=== PATIENT | female | born 1975 | race African-American/Black ===

== ENCOUNTER 2023-02-21 13:16 | Inpatient (IN) | payer MEDICAID ==
[~2023-02-21] VITALS: Ht 157.5 cm; Wt 97.1 kg
[2023-02-21] MEDS ORDERED: DIPHENHYDRAMINE 50MG/ML VIAL IM STA (13:28)
[2023-02-21] MEDS ORDERED: LORAZEPAM 2MG/ML CPJ IM STA (13:28)
[2023-02-21] MEDS ORDERED: HALOPERIDOL LACTATE 5MG/ML VIAL IM ONE (13:30)
[2023-02-21 14:07] LABS: BASOPHILS % 0.4 % (0.0-2.0); EOSINOPHILS % 1.3 % (0.0-5.0); HEMATOCRIT. 36.4 % (36.0-48.0); HEMOGLOBIN. 12.3 g/dL (12.0-16.0); MEAN CORPUSCULAR HGB CONC 33.7 g/dL (31.0-37.0); MEAN CORPUSCULAR VOLUME 95.2 fL (81.0-99.0); MEAN PLATELET VOLUME 7.9 fl (7.4-10.4); MONOCYTES % 14.4 % (2.0-8.0); NEUTROPHILS % 39.9 % (40.0-76.0); PLATELET 151 x1000/uL (130-400); RED BLOOD CELL COUNT 3.82 mill/uL (4.2-5.4); WHITE BLOOD COUNT 4.4 x1000/uL (4.5-11.0)
[2023-02-21 14:10] LABS: CHLORIDE 105 mEq/L (98-107); INDEX HEMOLYSI 4 (1-3); INDEX ICTERIC 1 (1-4); INDEX LIPEMIC 1 (1-3); SODIUM 136 mEq/L (136-145)
[2023-02-21 14:13] LABS: PARTIAL THROMBOPLASTIN TIME 30.2 sec (23.4-31.0); PROTHROMBIN TIME 11.1 sec (9.6-11.0)
[2023-02-21 14:28] LABS: ACETAMINOPHEN <2 ug/mL ug/mL (10-30); ALANINE AMINOTRANSFERASE 35 IU/L (13-61); ALBUMIN 3.4 g/dL (3.4-5.0); ASPARTATE AMINOTRANSFERASE 35 IU/L (15-37); BILIRUBIN TOTAL 0.4 mg/dL (0.1-1.0); CALCIUM 9.7 mg/dL (8.5-10.1); CARBON DIOXIDE 24 mEq/L (21-32); CREATININE 0.5 mg/dL (0.6-1.3); ETHANOL BLOOD < 10 mg/dL (-10); GLUCOSE 101 mg/dL (70-105); PROTEIN TOTAL 8.5 g/dL (6.0-8.3); UREA NITROGEN BLOOD 14 mg/dL (7-21)
[2023-02-21 14:31] LABS: POTASSIUM 3.8 mEq/L (3.5-5.1)
[2023-02-21 14:35] LABS: HCG SCREEN NEGATIVE
[2023-02-21] MEDS ORDERED: SODIUM CHLORIDE 0.9% 1,000 ML IV ONE (14:45)
[2023-02-21 15:36] LABS: INDEX HEMOLYSI 1 (1-3)
[2023-02-21 15:38] LABS: AMMONIA 21 uMol/L (<32)
[2023-02-21 15:43] LABS: TROPONIN I HIGH SENSITIVITY 6 ng/L (<54)
[2023-02-21] MEDS: HALOPERIDOL LACTATE 5MG/ML VIAL IM PRN (18:23)
[2023-02-21] MEDS ORDERED: CLONIDINE 0.1MG TABLET PO PRN (19:00)
[2023-02-21] MEDS ORDERED: ENOXAPARIN 40MG/0.4ML SYR SUBCUT SCH (19:00)
[2023-02-21] MEDS ORDERED: ONDANSETRON HCL 4MG/2ML INJ IV PRN (19:00)
[2023-02-21] MEDS ORDERED: ACETAMINOPHEN 325MG TABLET PO PRN (19:00)
[2023-02-21] MEDS ORDERED: DEXTROSE 50% WATER 50ML SYRINGE IV PRN (23:15)
[2023-02-22 01:00] VITALS: BP 142/88; PULSE 78; RESP 18; TEMP 97.5
[2023-02-22] MEDS: LORAZEPAM 2MG/ML CPJ IV PRN ×3 (01:39→18:07)
[2023-02-22] MEDS: HALOPERIDOL LACTATE 5MG/ML VIAL IM PRN (01:45)
[2023-02-22 02:45] LABS: CREATINE KINASE MB FRACTION 2.9 ng/mL (0.5-3.6)
[2023-02-22 07:19] LABS: HEMATOCRIT. 39.8 % (36.0-48.0); HEMOGLOBIN. 13.4 g/dL (12.0-16.0); MEAN CORPUSCULAR HEMOGLOBIN 32.2 pg (28.0-32.0); MEAN CORPUSCULAR HGB CONC 33.7 g/dL (31.0-37.0); MEAN CORPUSCULAR VOLUME 95.6 fL (81.0-99.0); MEAN PLATELET VOLUME 7.5 fl (7.4-10.4); PLATELET 153 x1000/uL (130-400); RED BLOOD CELL COUNT 4.16 mill/uL (4.2-5.4); RED CELL DISTRIBUTION WIDTH 16.2 % (11.6-14.6); WHITE BLOOD COUNT 2.9 x1000/uL (4.5-11.0)
[2023-02-22 07:42] LABS: CHLORIDE 104 mEq/L (98-107); INDEX HEMOLYSI 1 (1-3); INDEX ICTERIC 1 (1-4); INDEX LIPEMIC 1 (1-3); SODIUM 135 mEq/L (136-145)
[2023-02-22 07:51] LABS: CALCIUM 9.8 mg/dL (8.5-10.1); CARBON DIOXIDE 26 mEq/L (21-32); CREATINE KINASE 209 IU/L (26-192); CREATINE KINASE MB FRACTION 3.5 ng/mL (0.5-3.6); CREATININE 0.4 mg/dL (0.6-1.3); GLUCOSE 117 mg/dL (70-105); TROPONIN I HIGH SENSITIVITY 4 ng/L (<54); UREA NITROGEN BLOOD 11 mg/dL (7-21)
[2023-02-22 07:55] LABS: DIFFERENTIAL COMMENT 1
[2023-02-22 08:00] VITALS: BP 136/96; PULSE 84; TEMP 97
[2023-02-22] MEDS: INSULIN LISPRO 100 UNITS/ML SUBCUT SCH ×4 (08:08→21:00)
[2023-02-22] MEDS ORDERED: HALO20TA6 PO (10:55)
[2023-02-22] MEDS ORDERED: TOPUD MT (10:55)
[2023-02-22] MEDS ORDERED: KEPP500 PO (10:55)
[2023-02-22] MEDS ORDERED: CHOL400D2 PO (10:55)
[2023-02-22] MEDS ORDERED: FAMO40TA7 PO (10:55)
[2023-02-22] MEDS ORDERED: DIVA500T51 PO (10:55)
[2023-02-22] MEDS ORDERED: AMLO10TA4 PO (10:55)
[2023-02-22] MEDS ORDERED: SITA100T11 PO ×2 (10:55→19:07)
[2023-02-22] MEDS ORDERED: APIX2.5T PO (10:55)
[2023-02-22] MEDS ORDERED: QUET400T PO (10:55)
[2023-02-22] MEDS ORDERED: METF-874 PO (10:55)
[2023-02-22] MEDS ORDERED: OXYB5SYR PO (10:55)
[2023-02-22] MEDS: BLOOD SUGAR DIAGNOSTIC STRIP TEST SCH ×3 (11:27→21:07)
[2023-02-22 12:00] VITALS: BP 140/90; PULSE 78; TEMP 97.8
[2023-02-22 13:23] LABS: ANISOCYTOSIS 1+; PLATELET ESTIMATE NORMAL
[2023-02-22 16:00] VITALS: BP 141/95; PULSE 87; TEMP 97.3
[2023-02-22] MEDS ORDERED: DIVALPROEX SODIUM 500MG ER TABLET PO SCH (17:00)
[2023-02-22] MEDS: AMLODIPINE 10MG TABLET PO SCH (17:39)
[2023-02-22] MEDS: ENOXAPARIN 30MG/0.3ML SYR SUBCUT SCH (17:39)
[2023-02-22] MEDS: LEVETIRACETAM 500MG TABLET PO SCH (17:40)
[2023-02-22] MEDS ORDERED: OXYB5TAB16 PO (19:07)
[2023-02-22] MEDS ORDERED: METF-416 PO (19:19)
[2023-02-22] MEDS ORDERED: ESCI-7 PO (19:19)
[2023-02-22 20:00] VITALS: BP 133/91; PULSE 98; TEMP 96.6
[2023-02-22] MEDS: QUETIAPINE FUMARATE 200MG TABLET PO SCH (21:16)
[2023-02-23] VITALS: BP 126/84; PULSE 112; TEMP 97.1
[2023-02-23] MEDS: LORAZEPAM 2MG/ML CPJ IV PRN ×3 (02:52→18:48)
[2023-02-23 04:00] VITALS: BP 136/78; PULSE 136; TEMP 97.5
[2023-02-23] MEDS: ENOXAPARIN 30MG/0.3ML SYR SUBCUT SCH (06:23)
[2023-02-23] MEDS: BLOOD SUGAR DIAGNOSTIC STRIP TEST SCH ×2 (06:24→13:27)
[2023-02-23] MEDS: INSULIN LISPRO 100 UNITS/ML SUBCUT SCH ×2 (07:47→13:10)
[2023-02-23 08:01] VITALS: BP 119/79; PULSE 91; RESP 20; TEMP 97.2
[2023-02-23] MEDS: LEVETIRACETAM 500MG TABLET PO SCH ×2 (08:48→17:18)
[2023-02-23] MEDS: AMLODIPINE 10MG TABLET PO SCH (08:49)
[2023-02-23] MEDS: QUETIAPINE FUMARATE 200MG TABLET PO SCH (08:49)
[2023-02-23 11:39] VITALS: BP 107/62; PULSE 100; RESP 20; TEMP 98.7
[2023-02-23 16:28] VITALS: BP 125/80; PULSE 100; RESP 20; TEMP 98
[2023-02-23 17:49] VITALS: BP 125/80; PULSE 97; TEMP 97.8; O2SAT 95
== END 2023-02-23 18:54 | DRG 52 ==
LOC: ER 13:57 → EDBEDREQ 15:44 → EDBEDREQTM 15:44 → 7WST 02-22 01:10
PROVIDERS: ADMIT Internal Medicine; ATTEND Internal Medicine
DX: G93.40 Encephalopathy, unspecified (principal); E11.9 Type 2 diabetes mellitus without complications; I10 Essential (primary) hypertension; E78.5 Hyperlipidemia, unspecified; G40.909 Epilepsy, unspecified, not intractable, without status epilepticus
CPT/HCPCS: 36415; 71045; 80048; 80053; 80165; 80307; 80320; 80329; 82140; 82550; 82553; 82962; 83036; 84484; 84703; 85025; 93005; 99285; J1200; J1630; J1650; J2060; J7030; G0480

== ENCOUNTER 2023-11-24 16:44 | Emergency (ER) | payer MEDICAID ==
[~2023-11-24] VITALS: Ht 167.6 cm; Wt 89.0 kg
[~2023-11-24 16:44] MED LIST: ABIL5 PO; AMLO10TA4 PO; QUET200T30 PO; VALP250S22 PO
[2023-11-24 16:49] VITALS: O2SAT 99
[2023-11-24 17:43] LABS: BASOPHILS % 0.2 % (0.0-2.0); EOSINOPHILS % 0.4 % (0.0-5.0); HEMOGLOBIN. 14.2 g/dL (12.0-16.0); LYMPHOCYTES % 18.7 % (20.0-50.0); MEAN CORPUSCULAR HEMOGLOBIN 30.8 pg (28.0-32.0); MEAN CORPUSCULAR HGB CONC 33.8 g/dL (31.0-37.0); MEAN CORPUSCULAR VOLUME 91.2 fL (81.0-99.0); MEAN PLATELET VOLUME 8.8 fl (7.4-10.4); MONOCYTES % 5.2 % (2.0-8.0); NEUTROPHILS % 75.5 % (40.0-76.0); PLATELET 51 x1000/uL (130-400); RED CELL DISTRIBUTION WIDTH 16.5 % (11.6-14.6); WHITE BLOOD COUNT 3.7 x1000/uL (4.5-11.0)
[2023-11-24 17:54] LABS: CHLORIDE 104 mEq/L (98-107); POTASSIUM 4.7 mEq/L (3.5-5.1); SODIUM 140 mEq/L (136-145)
[2023-11-24 17:55] LABS: CALCIUM 10.5 mg/dL (8.7-10.4); CARBON DIOXIDE 32 mEq/L (21-32)
[2023-11-24 18:00] LABS: CREATININE 0.4 mg/dL (0.6-1.0); GLUCOSE 90 mg/dL (70-105); UREA NITROGEN BLOOD 15 mg/dL (9-23)
[2023-11-24 18:17] LABS: TROPONIN I HIGH SENSITIVITY < 4 ng/L (3.0-34)
[2023-11-24 19:09] LABS: TROPONIN I HIGH SENSITIVITY < 4 ng/L (3.0-34)
[2023-11-24] MEDS: LEVOFLOXACIN 750MG PREMIX 150 ML IV STA (19:20)
[2023-11-24 21:50] VITALS: BP 125/85; PULSE 57; RESP 17; TEMP 98.3
== END 2023-11-24 22:07 | disposition short-term general hospital (02) ==
LOC: ER 16:44 → EDBD 16:44 → ER 22:07 → CANBEDREQ 11-26 21:27
DX: J18.9 Pneumonia, unspecified organism (principal); I10 Essential (primary) hypertension; Z93.0 Tracheostomy status; Z98.890 Other specified postprocedural states; Z86.59 Personal history of other mental and behavioral disorders
CPT/HCPCS: 80048; 83880; 85025; 84484; 36415; 71045; 93005; 96365; 99285; J1956; Z7610 ×4

== ENCOUNTER 2023-12-12 21:54 | Emergency (ER) | payer MEDICAID ==
[~2023-12-12] VITALS: Ht 167.6 cm; Wt 70.0 kg
[2023-12-12 21:56] VITALS: O2SAT 100
[2023-12-12] MEDS ORDERED: DEXTROSE 50% WATER 50ML SYRINGE IV ONE (21:59)
[2023-12-12 22:35] LABS: HEMATOCRIT. 34.8 % (36.0-48.0); HEMOGLOBIN. 11.7 g/dL (12.0-16.0); MEAN CORPUSCULAR HEMOGLOBIN 30.4 pg (28.0-32.0); MEAN CORPUSCULAR HGB CONC 33.7 g/dL (31.0-37.0); MEAN CORPUSCULAR VOLUME 90.1 fL (81.0-99.0); MEAN PLATELET VOLUME 8.4 fl (7.4-10.4); PLATELET 62 x1000/uL (130-400); RED BLOOD CELL COUNT 3.87 mill/uL (4.2-5.4); RED CELL DISTRIBUTION WIDTH 17.9 % (11.6-14.6)
[2023-12-12] MEDS: DEXTROSE 50% WATER 50ML SYRINGE IV ONE (22:35)
[2023-12-12 22:43] LABS: CHLORIDE 107 mEq/L (98-107); POTASSIUM 4.8 mEq/L (3.5-5.1); SODIUM 141 mEq/L (136-145)
[2023-12-12 22:44] LABS: CALCIUM 9.9 mg/dL (8.7-10.4); CARBON DIOXIDE 31 mEq/L (21-32); DIFFERENTIAL COMMENT 1
[2023-12-12 22:48] LABS: HCG SCREEN NEGATIVE
[2023-12-12 22:49] LABS: CREATININE 0.5 mg/dL (0.6-1.0); UREA NITROGEN BLOOD 6 mg/dL (9-23)
[2023-12-12 22:50] LABS: TROPONIN I HIGH SENSITIVITY 4 ng/L (3.0-34)
[2023-12-12 22:51] LABS: ACETAMINOPHEN < 2 ug/mL (10-30); AMMONIA 36 uMol/L (<32); WHITE BLOOD COUNT 1.8 x1000/uL (4.5-11.0)
[2023-12-12 22:52] LABS: ETHANOL BLOOD < 10 mg/dL (<10); GLUCOSE 46 mg/dL (70-105)
[2023-12-12 23:19] LABS: NUCLEATED RED BLOOD CELLS 1 /100 WBC
[2023-12-12 23:20] LABS: ANISOCYTOSIS 1+; PLATELET ESTIMATE DECREASED
[2023-12-12] MEDS: SODIUM CHLORIDE 0.9% 1,000 ML IV ONE (23:24)
[2023-12-12] MEDS: CEFTRIAXONE 1GM/50ML 50 ML IV ONE (23:24)
[2023-12-13 05:15] VITALS: BP 144/94; PULSE 55; RESP 23; TEMP 84.5
== END 2023-12-13 05:35 | disposition short-term general hospital (02) ==
LOC: ER 21:54 → EDBEDREQ 12-13 03:04 → ER 12-13 05:35
DX: R41.82 Altered mental status, unspecified (principal); E11.9 Type 2 diabetes mellitus without complications; I10 Essential (primary) hypertension; R56.9 Unspecified convulsions
CPT/HCPCS: 80048; 80307; 80329; 80320; 82140; 82962 ×2; 84703; 85025; 84484; 36415; 96365; 96375; 99285; 70450; J0696; J7030; G0480